=== PATIENT | female | born 1995 | race African-American/Black ===

== ENCOUNTER 2020-02-29 14:08 | Emergency (ER) | payer BC, SELFPAY ==
--- NOTE | ~2020-02-29 | US_ITS ---
EXAMINATION: US pelvic complete w TV EXAM DATE: 02/29/2020 15:31 INDICATION: Abdominal pain. TECHNIQUE: Pelvic transabdominal and transvaginal sonogram was performed. There are multiple graysca le and Doppler images available for interpretation. There is no prior study for comparison. FINDINGS: Uterus measures 9.0 x 4.9 x 3.6 cm, and is morphologically normal. Endometrial stripe demario sures 10 mm, within normal limits. There is no free pelvic fluid. Right adnexa: The ovary is not identified. There is no adnexal mass. Left adnexa: The ovary is not identified. There is no adnexal mass. IMPRESSION: 1. Unremarkable uterus. 2. Ovaries not identified. Reviewed, dictated and finalized at location A.
[2020-02-29 14:18] VITALS: BP 132/80; PULSE 75; RESP 18; TEMP 36.6; O2SAT 100
[2020-02-29 14:44] LABS: Basophils Percent Auto 0.1 % (0.2-1.2); Eosinophils Absolute Auto 0.1 K/mm3 (0-0.3); Eosinophils Percent Auto 1.8 % (0-4.4); Hematocrit 41.1 % (37.0-47.0); Hemoglobin 13.4 g/dL (12.0-15.0); Immature Granulocyte Absolute 0.01 K/mm3 (0.00-0.031); Immature Granulocyte Percent A 0.1 % (0-0.5); Lymphocytes Absolute Auto 2.31 K/mm3 (0.9-3.2); Lymphocytes Percent Auto 34.6 % (18.3-44.2); Mean Corpuscular HGB Conc 32.6 g/dl (32-36); Mean Corpuscular Hemoglobin 29.9 pg (26-34); Mean Corpuscular Volume 91.7 fl (80-100); Mean Platelet Volume 11.2 fl (7.4-10.4); Monocytes Absolute Auto 0.4 K/mm3 (0.1-0.6); Monocytes Percent Auto 5.4 % (2.6-8.5); Neutrophils Absolute Auto 3.9 K/mm3 (1.3-6.7); Platelet Count Result 263 k/mm3 (150-375); Red Blood Count 4.48 M/mm3 (4.2-5.4); Red Cell Distribution Width 11.9 % (11.5-14.5); White Blood Count 6.7 K/mm3 (4.5-10.0)
[2020-02-29 14:48] LABS: Add Urine Microscopic? YES; Appearance Urine Clear (Clear); Bilirubin Urine Negative (Negative); Blood Urine Negative (Negative); Color Urine Yellow (Yellow); Glucose Urine UA Negative (Negative); Ketones Urine Negative (Negative); Leukocyte Esterase Ur Negative LEU/UL (Negative); Mucus Urine Rare /lpf; Nitrate Urine Negative (Negative); Protein Urine 1+ mg/dL (Negative); RBC Urine 0-2 /hpf (0-2); Squamous Epithelial Cell Urine Many /hpf (Few); WBC Urine 0-3 /hpf
--- NOTE | 2020-02-29 14:58 | ED.ABDPAIN ---
HPI - Abdominal Pain General Chief Complaint: Abdominal Pain Stated Complaint: abd pain Time Seen by Provider: 02/29/20 14:13 Source: patient Mode of arrival: ambulatory Limitations: no limitations History of Present Illness HPI narrative: Patient is a 24-year-old female who presents to emergency department for evaluation of suprapubic abdominal pain has been present for a week and a half is intermittent in nature noticed an aching pain thought she might be starting her manses has had some light vaginal bleeding a week ago which resolved. Patient denies any fever chills nausea vomiting urinary symptoms bowel changes or vaginal discharge. Patient denies similar occurrence in the past. Patient is not been seen for this complaint nor has she taken anything for her symptoms Related Data Allergies Allergy/AdvReac Type Severity Reaction Status Date / Time No Known Allergies Allergy Unverified 12/03/13 11:41 Review of Systems Review of Systems: All systems reviewed & are unremarkable except as noted in HPI and below PMFSH Social History Social History Smoking status: Never smoker Alcohol intake: never Exam Narrative: Exam Narrative: GENERAL: Well-appearing, well-nourished, and in no acute distress. HEAD: Normocephalic, atraumatic. EYES: PERRLA and EOMI. ENT: Nares clear, no rhinorrhea or epistaxis. Mucous membranes moist. CHEST: Clear to auscultation. No respiratory distress. No wheezes rales or rhonchi HEART: Regular rate and rhythm. No murmur heard. Normal peripheral pulses. ABDOMEN: Soft, suprapubic tenderness to palpation, nondistended EXTREMITIES: Normal range of motion. No edema. SKIN: Warm, dry, no rash. NEURO: No focal deficits. Alert and oriented x3. Cranial nerves II through XII grossly intact PSYCH: Normal mood and affect. Course Course Emergency Course: Patient in the room at this time in no distress no high risk changes in the evaluation patient will follow with gynecology and primary care for further evaluation has been reasons to return patient was asked about STD and denies concern for this patient agrees to follow-up as instructed patient was given medications in the emergency department Vital Signs Vital signs: Vital Signs Temperature 97.9 F 02/29/20 14:18 Pulse Rate 75 02/29/20 14:18 Respiratory Rate 18 02/29/20 14:18 Blood Pressure 132/80 02/29/20 14:18 Pulse Oximetry 100 02/29/20 14:18 Temperature 97.9 F 02/29/20 14:18 Pulse Rate 75 02/29/20 14:18 Respiratory Rate 18 02/29/20 14:18 Blood Pressure 132/80 02/29/20 14:18 Pulse Oximetry 100 02/29/20 14:18 MDM - Abdominal Pain MDM Narrative Medical decision making narrative: Patient with abdominal pain of unknown etiology in the room in no distress aware of case findings treatment plan and diagnosis agreeing to follow-up as directed or to return if symptoms worsen or concerns Lab Data Result diagrams: 02/29/20 14:36 02/29/20 14:36 Labs: Lab Results 02/29/20 02/29/20 02/29/20 Range/Units 14:36 14:36 14:36 WBC 6.7 (4.5-10.0) K/mm3 RBC 4.48 (4.2-5.4) M/mm3 Hgb 13.4 (12.0-15.0) g/dL Hct 41.1 (37.0-47.0) % MCV 91.7 (80-100) fl MCH 29.9 (26-34) pg MCHC 32.6 (32-36) g/dl RDW 11.9 (11.5-14.5) % Plt Count 263 (150-375) k/mm3 MPV 11.2 H (7.4-10.4) fl Immature Gran % (Auto) 0.1 (0-0.5) % Neut % (Auto) 58.0 (45.5-73.1) % Lymph % (Auto) 34.6 (18.3-44.2) % Armstrong % (Auto) 5.4 (2.6-8.5) % Eos % (Auto) 1.8 (0-4.4) % Baso % (Auto) 0.1 L (0.2-1.2) % Lymph # (Auto) 2.31 (0.9-3.2) K/mm3 Armstrong # (Auto) 0.4 (0.1-0.6) K/mm3 Eos # (Auto) 0.1 (0-0.3) K/mm3 Baso # (Auto) 0.0 (0.0-0.1) K/mm3 Abs Immat Gran (auto) 0.01 (0.00-0.031) K/mm3 Absolute Neuts (auto) 3.9 (1.3-6.7) K/mm3 Absolute Nucleated RBC 0.0 (0.0-0.012) K/mm3 Nucl
[2020-02-29 15:02] LABS: Alanine Aminotransferase 25 U/L (4-35); Albumin Level 4.3 g/dL (3.5-5.1); Alkaline Phosphatase 71 U/L (38-126); Anion Gap 8 mmol/L (8-16); Aspartate Amino Transferase 23 U/L (14-36); Bilirubin,Total 0.7 mg/dL (0.2-1.3); Blood Urea Nitrogen 16 mg/dL (7-17); Calcium 9.3 mg/dL (8.4-10.2); Carbon Dioxide 29 mmol/L (22-30); Chloride 105 mmol/L (98-107); Estimated CRCL calculation 124 ml/min; Estimated Glomerular Filt Rate > 60; Glucose 87 mg/dL (65-105); Lipase 208 U/L (23-300); Potassium 3.8 mmol/L (3.4-5.0); Sodium 142 mmol/L (137-145)
[2020-02-29 15:06] LABS: Specific Grav Ur 1.031 (1.001-1.035)
[2020-02-29] MEDS: SODIUM CHLORIDE 0.9% IV 1,000 ML 999 ML IV CONT (15:08)
[2020-02-29] MEDS: KETOROLAC 30 MG/ML VIAL (*BKC) IV PUSH (15:08)
[2020-02-29 16:27] VITALS: BP 138/78; PULSE 78; RESP 20; O2SAT 99
== END 2020-02-29 16:28 | disposition home or self-care (01) ==
PROVIDERS: Emergency Provider Emergency Medicine; PCP Internal Medicine
DX: R10.30 Lower abdominal pain, unspecified (principal)
CPT/HCPCS: 36415; 76830; 76856; 80053; 81001; 81025; 83690; 85025; 96361; 96374; 99284; J1885; J7030